=== PATIENT | female | born 1995 | race Hispanic/Latino ===

== ENCOUNTER 2017-09-22 08:27 | Emergency (ER) | payer OTHER ==
[~2017-09-22] VITALS: Ht 165.1 cm; Wt 81.8 kg
[2017-09-22 08:28] VITALS: BP 120/74
[2017-09-22] MEDS ORDERED: CETI10TA PO (08:37)
[2017-09-22] MEDS ORDERED: AMOX500C PO (09:20)
== END 2017-09-22 09:20 | disposition home or self-care (01) ==
LOC: M ED 08:27
DX: J02.0 Streptococcal pharyngitis (principal); F17.210 Nicotine dependence, cigarettes, uncomplicated; Z79.899 Other long term (current) drug therapy